=== PATIENT | male | born 1975 | race Caucasian/White ===

== ENCOUNTER 2019-01-21 07:42 | Emergency (ER) | payer OTHER ==
[~2019-01-21] VITALS: Ht 182.9 cm; Wt 96.5 kg
[2019-01-21] MEDS ORDERED: LIDOcaine 1% 30ml preserv. free vial IJ ONE (08:15)
[2019-01-21] MEDS ORDERED: bacitracin 15gm ointment TP ONE (08:15)
[2019-01-21] MEDS ORDERED: HYDROcodone/acetaminophen 5mg/325mg tablet PO ONE (08:15)
[2019-01-21] MEDS ORDERED: HYDR-4383 PO (09:10)
[2019-01-21] MEDS ORDERED: CEPH250T PO (09:10)
[2019-01-21 09:51] VITALS: BP 139/88
== END 2019-01-21 10:00 | disposition home or self-care (01) ==
LOC: ER 07:42
DX: S62.521B Displaced fracture of distal phalanx of right thumb, initial encounter for open fracture (principal); Z88.1 Allergy status to other antibiotic agents; Z79.2 Long term (current) use of antibiotics; Z79.899 Other long term (current) drug therapy; W23.0XXA Caught, crushed, jammed, or pinched between moving objects, initial encounter; Y93.89 Activity, other specified; Y92.89 Other specified places as the place of occurrence of the external cause; Y99.8 Other external cause status
CPT/HCPCS: 29125; 73140; 99283; J2001